=== PATIENT | male | born 2000 | race Hispanic/Latino ===

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

== ENCOUNTER 2024-02-27 15:03 | Emergency (ER) | payer OTHER, SELFPAY ==
[2024-02-27] MEDS ORDERED: Morphine 4 MG/ML VIAL ONE ×2 (15:41→16:58)
[2024-02-27] MEDS ORDERED: Ondansetron PF 4 MG/2 ML Vial ONE ×2 (15:41→20:25)
[2024-02-27] MEDS ORDERED: KETAMINE 100 MG/ML (5ML VIAL) ONE (17:34)
[2024-02-27] MEDS ORDERED: Ketorolac Tromethamine 30 MG (1 mL) VIAL ONE (20:25)
== END 2024-02-27 21:35 | disposition home or self-care (01) ==
LOC: ERS 15:03
DX: S53.124A Posterior dislocation of right ulnohumeral joint, initial encounter (principal); V80.010A Animal-rider injured by fall from or being thrown from horse in noncollision accident, initial encounter
CPT/HCPCS: 24600; 70450; 72125; 96374; 96375; 96376; 99152; 99153; J1885; J2272; J2405